=== PATIENT | female | born 1990 | race Caucasian/White ===

== ENCOUNTER 2017-07-13 03:10 | Emergency (ER) | payer MEDICAID ==
[2017-07-13] MEDS ORDERED: ONDANSETRON 4 MG/2 ML VIAL IVP ONE (03:15)
[2017-07-13] MEDS ORDERED: NS 1,000 ML IV ONE (03:15)
--- NOTE | 2017-07-13 03:18 | EDPHY ---
H & P Time Seen by Provider: 07/13/17 03:15 HPI/ROS: HPI CHIEF COMPLAINT: Nausea vomiting diarrhea HISTORY OF PRESENT ILLNESS: This patient is a 27-year-old female, she has a history of anxiety, PTSD, and is currently homeless staying at a local halfway she presents emergency room by EMS for nausea vomiting and diarrhea. She states this all started around 8:00 p.m. Last night. She had multiple episodes of nonbilious nonbloody vomiting. As well as watery diarrhea. Some abdominal cramping. She received Zofran 4 mg ODT in route as well as IV fluids and is feeling much better. Upon arrival to the emergency room she appears well nontoxic and in no acute distress she does complain that she feels dehydrated. She denies fever chest pain or shortness of breath. However does feel fatigued. Past Medical History: No significant medical history except for anxiety and PTSD Past Surgical History: , tonsillectomy, adenectomy, cholecystectomy Social History: Smokes tobacco, denies illicit drugs or alcohol. Staying at a local homeless halfway. Family History: Noncontributory ROS REVIEW OF SYSTEMS: A comprehensive 10 point review of systems is otherwise negative aside from elements mentioned in the history of present illness. Exam Constitutional appears well nontoxic no acute distress triage nursing summary reviewed, vital signs reviewed, awake/alert. Eyes normal conjunctivae and sclera, EOMI, PERRLA. HENT normal inspection, atraumatic, moist mucus membranes, no epistaxis, neck supple/ no meningismus, no raccoon eyes. Respiratory clear to auscultation bilaterally, normal breath sounds, no respiratory distress, no wheezing. Cardiovascular rate normal, regular rhythm, no murmur, no edema, distal pulses normal. Gastrointestinal no significant tenderness on exam, soft, non-tender, no rebound, no guarding, normal bowel sounds, no distension, no pulsatile mass. Genitourinary no CVA tenderness. Musculoskeletal no midline vertebral tenderness, full range of motion, no calf swelling, no tenderness of extremities, no meningismus, good pulses, neurovascularly intact. Skin pink, warm, & dry, no rash, skin atraumatic. Neurologic awake, alert and oriented x 3, AAOx3, moves all 4 extremities equally, motor intact, sensory intact, CN II-XII intact, normal cerebellar, normal vision, normal speech. Psychiatric normal mood/affect. Heme/Lymph/Immune no lymphadenopathy. Differential diagnosis includes but is not limited to and in no particular order : Dehydration, electrolyte disturbance, infection, enteritis, bowel obstruction , UTI, food-borne illness Medical Decision Making: Plan for this patient IV establishment IV fluid bolus 1 L normal saline, IV Zofran for nausea check basic blood work, urinalysis, electrolytes, re-evaluate. Re-evaluation: 0413: Patient re-examined at this time her abdomen is soft nontender. She was sleeping. On re-examination she states she feels much better after fluids and nausea medicine she has not had any vomiting here. I did review her blood work is no signs of significant abnormality she does have a mild leukocytosis. Most likely from vomiting and diarrhea. She has not had any diarrhea here. Her abdomen is soft. Otherwise electrolytes are appropriate. Clean urine. She feels better after fluids and nausea medicine. Will allowed to go home. Return precautions discussed with her she understands return emergency room if develops worsening abdominal pain fever vomiting. [place] diet over the next 24-48 hours. Return if worse she understands. Source: Patient, EMS - Medical/Surgical History Hx Asthma: Yes Hx Chronic Respiratory Disease: No Hx Diabetes: No Hx Cardiac Disease: No Hx Renal Disease: No Hx Cirrhosis: No Hx Alcoholism: No Hx HIV/AIDS: No Hx Splenectomy or Spleen Trauma: No Other PMH: scoliosis with chronic pain. ptsd. anxiety. insomnia. adhd. hypoglycemia. asthma Constitutional: Initial Vital Signs Temperature (C) 36.7 C 07/13/17 03:21 Heart Rate 93 07/13/17 03:21 Respiratory Rate 16 07/13/17 03:21 Blood Pressure 115/67 07/13/17 03:21 O2 Sat (%) 92 07/13/17 03:21 O2 Delivery Mode Room Air Allergies/Adverse Reactions: aspirin Allergy (Verified 04/07/13 00:46) baclofen Allergy (Verified 04/07/13 00:46) erythromycin base [Erythromycin Base] Allergy (Verified 04/07/13 00:46) tramadol Allergy (Verified 04/07/13 00:46) Home Medications: Medication Instructions Recorded Adderall 10 MG (RX) 04/07/13 Adderall Xr 10 mg Capsule 04/07/13 Advair 04/07/13 Imitrex 04/07/13 LUNESTA 04/07/13 Singulair 04/07/13 Soma 04/07/13 TYLENOL #3 04/07/13 Medical Decision Making - Data Points Laboratory Results: Laboratory Results 07/13/17 03:17 07/13/17 03:17 07/13/17 07/13/17 07/13/17 03:17 03:17 03:17 WBC 15.75 10^3/uL H 10^3/uL (3.80-9.50) RBC 5.02 10^6/uL 10^6/uL (4.18-5.33) Hgb 12.3 g/dL L g/dL (12.6-16.3) Hct 39.4 % % (38.0-47.0) MCV 78.5 fL L fL (81.5-99.8) MCH 24.5 pg L pg (27.9-34.1) MCHC 31.2 g/dL L g/dL (32.4-36.7) RDW 17.0 % H % (11.5-15.2) Plt Count 373 10^3/uL 10^3/uL (150-400) MPV 8.7 fL fL (8.7-11.7) Neut % (Auto) 86.0 % H % (39.3-74.2) Lymph % (Auto) 6.3 % L % (15.0-45.0) [place] % (Auto) 5.1 % % (4.5-13.0) Eos % (Auto) 1.8 % % (0.6-7.6) Baso % (Auto) 0.3 % % (0.3-1.7) Nucleat RBC Rel Count 0.0 % % (0.0-0.2) Absolute Neuts (auto) 13.53 10^3/uL H 10^3/uL (1.70-6.50) Absolute Lymphs (auto) 1.00 10^3/uL 10^3/uL (1.00-3.00) Absolute Monos (auto) 0.81 10^3/uL H 10^3/uL (0.30-0.80) Absolute Eos (auto) 0.29 10^3/uL 10^3/uL (0.03-0.40) Absolute Basos (auto) 0.04 10^3/uL 10^3/uL (0.02-0.10) Absolute Nucleated RBC 0.00 10^3/uL 10^3/uL (0-0.01) Immature Gran % 0.5 % % (0.0-1.1) Immature Gran # 0.08 10^3/uL 10^3/uL (0.00-0.10) Sodium 140 mEq/L mEq/L (135-145) Potassium 3.6 mEq/L mEq/L (3.5-5.2) Chloride 107 mEq/L mEq/L (97-110) Carbon Dioxide 24 mEq/l mEq/l (22-31) Anion Gap 9 mEq/L mEq/L (8-16) BUN 14 mg/dL mg/dL (7-23) Creatinine 0.6 mg/dL mg/dL (0.6-1.0) Estimated GFR > 60 Glucose 93 mg/dL mg/dL (70-100) Calcium 9.6 mg/dL mg/dL (8.5-10.4) Total Bilirubin 0.6 mg/dL mg/dL (0.1-1.4) Conjugated Bilirubin 0.3 mg/dL mg/dL (0.0-0.5) Unconjugated Bilirubin 0.3 mg/dL mg/dL (0.0-1.1) AST 22 IU/L IU/L (14-46) ALT 32 IU/L IU/L (9-52) Alkaline Phosphatase 56 IU/L IU/L (38-126) Total Protein 7.2 g/dL g/dL (6.3-8.2) Albumin 4.1 g/dL g/dL (3.5-5.0) Lipase 211 IU/L IU/L (23-300) Urine Color YELLOW Urine Appearance CLEAR Urine pH 6.0 (5.0-7.5) Ur Specific [place] 1.012 (1.002-1.030) Urine Protein NEGATIVE (NEGATIVE) Urine Ketones NEGATIVE (NEGATIVE) Urine Blood NEGATIVE (NEGATIVE) Urine Nitrate NEGATIVE (NEGATIVE) Urine Bilirubin NEGATIVE (NEGATIVE) Urine Urobilinogen NEGATIVE EU EU (0.2-1.0) Ur Leukocyte Esterase NEGATIVE (NEGATIVE) Urine Glucose NEGATIVE (NEGATIVE) Urine Opiates Screen NEGATIVE (NEGATIVE) Urine Barbiturates NEGATIVE (NEGATIVE) Ur Phencyclidine Scrn NEGATIVE (NEGATIVE) Ur Amphetamine Screen NEGATIVE (NEGATIVE) U Benzodiazepines Scrn NEGATIVE (NEGATIVE) Urine Cocaine Screen NEGATIVE (NEGATIVE) U Marijuana (THC) Screen NON-NEGATIVE H (NEGATIVE) Medications Given: Discontinued Medications Acetaminophen (Tylenol) 1,000 mg PO EDNOW ONE Stop: 07/13/17 03:35 Last Admin: 07/13/17 03:35 Dose: 1,000 mg Sodium Chloride (Ns) 1,000 mls @ 0 mls/hr IV EDNOW ONE; Wide Open PRN Reason: Protocol Stop: 07/13/17 03:16 Last Admin: 07/13/17 03:29 Dose: 1,000 mls Ondansetron HCl (Zofran) 4 mg IVP EDNOW ONE Stop: 07/13/17 03:16 Last Admin: 07/13/17 03:29 Dose: 4 mg Departure - Departure Disposition: Home, Routine, Self-Care Clinical Impression: Vomiting and diarrhea Condition: Good Instructions: Acute Nausea and Vomiting (ED) Additional Instructions: 1. [place] diet over the next 24-48 hours no spicy fatty greasy foods. 2. Return emergency room if you have worsening abdominal pain fever vomiting. Referrals: Patient,NotPresent [Unknown] - As per Instructions
[2017-07-13 03:34] LABS: PLATELET COUNT 373 10^3/uL (150-400)
[2017-07-13] MEDS ORDERED: ACETAMINOPHEN 500 MG TAB ONE (03:34)
[2017-07-13] MEDS ORDERED: ACETAMINOPHEN 500 MG TAB PO ONE (03:34)
[2017-07-13 04:32] VITALS: BP 102/52
== END 2017-07-13 04:31 | disposition home or self-care (01) ==
LOC: EDBD → EDUNIT#
DX: R19.7 Diarrhea, unspecified (principal); R11.10 Vomiting, unspecified; J45.909 Unspecified asthma, uncomplicated; E86.9 Volume depletion, unspecified
CPT/HCPCS: 80305; 96374; J2405

== ENCOUNTER 2017-09-04 03:31 | Emergency (ER) | payer MEDICAID ==
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
[2017-09-04] MEDS ORDERED: LORazepam 2 MG/ML INJ ONE (04:30)
[2017-09-04] MEDS ORDERED: LORazepam 2 MG/ML INJ IVP ONE (04:34)
[2017-09-04] MEDS ORDERED: NS 1,000 ML IV ONE (04:34)
[2017-09-04 04:41] LABS: PLATELET COUNT 366 10^3/uL (150-400)
[2017-09-04 10:20] VITALS: BP 118/71
--- NOTE | 2017-09-04 11:09 | ASMTCMCOM ---
CM Note CM Note Notes: Spoke w/patient and provided outpatient mental health resources, local homeless resources, and [facility] information. Pt gave permission for [facility] to reach out to her via her cell phone ([phone]...? pt isn't sure the last 4 are correct and can't turn on phone at this time) and/or her e-mail:[email or web address]. This CM e-mailed referral to Kari Alberts RN Health Partner with [facility]. Pt states she is open with [facility] and had a visit w/her counselor, Marisela (sp?), sometime last week; pt states she will follow up this week. Pt also open with [facility] and her PCP is Brionna Shipley; pt states she is seen at their [facility] at the [facility]. This CM to reach out to [facility] and [facility] staff to update re:pt's ED visit and request outpatient follow-up. Pt states she has been staying at the [facility] recently. Pt was also staying at the women's long[facility]term in [place] through . Pt requested a shirt because she didn't want to put hers back on; pt provided a long sleeve blouse. Pt also requested a cab ride back to the [facility] at [address]; Medicaid cab transport arranged (distance is under 25 miles so they are able to approve discharge transport; conf # [id number]). Pt waiting for cab in ED waiting area. Pt states she knows how to arrange Medicaid transport for herself to and from her outpatient appts. Pt appreciative for resources. CM available for further assistance if needed. Date Signed: 09/04/2017 11:08 AM Electronically Signed By:Adela Rudea RN
--- NOTE | 2017-09-04 11:14 | ASDISCHSUM ---
Discharge Information Plan Status:Homeless/Correction Medically Cleared to Leave: Discharge Date:09/04/2017 10:34 AM CM D/C Disposition:Streets (Homeless) ADT D/C Disposition:Home, Routine, Self-Care Projected Discharge Date:09/04/2017 10:34 AM Transportation at D/C:Medicaid Transportation Discharge Delay Reason: Follow-Up Date:09/04/2017 10:34 AM Discharge Slot: Final Diagnosis: Placement Information Patient Contact Information Contact Name:AMBER Relationship:Father Address: City: [facility] Phone: [facility]/Zip Code: Email: Financial Information Financial Class:Medicaid Primary Plan Desc: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 Pt gave permission for [facility] to reach out to her via her cell phone ([phone]...? pt isn't sure the last 4 are correct and can't turn on phone at this time) and/or her e-mail:[email or web address]. This CM e-mailed referral to Kari Alberts RN Health Partner with [facility]. Pt states she is open with [facility] and had a visit w/her counselor, Marisela (sp?), sometime last week; pt states she will follow up this week. Pt also open with [facility] and her PCP is Brionna Shipley; pt states she is seen at their [facility] at the [facility]. This CM to reach out to [facility] and [facility] staff to update re:pt's ED visit and request outpatient follow-up. Pt states she has been staying at the [facility] recently. Pt was also staying at the [facility] in [place] through [facility]. Pt requested a shirt because she didn't want to put hers back on; pt provided a long sleeve blouse. Pt also requested a cab ride back to the [facility] at [address]; Medicaid cab transport arranged (distance is under 25 miles so they are able to approve discharge transport; conf # [id number]). Pt waiting for cab in ED waiting area. Pt states she knows how to arrange Medicaid transport for herself to and from her outpatient appts. Pt appreciative for resources. CM available for further assistance if needed. Date Signed: 09/04/2017 11:08 AM Electronically Signed By:Adela Rueda RN Intervention Information Intervention Type:Clothing Date of Service:09/04/2017 11:11 AM Patient Type:Emergency Room Staff Member:ALEJANDRINA Rueda Sharon Hours:0.25 Discipline:Supervisor Assembly Stock Severity: Comment:shirt Intervention Type:Community Resources Date of Service:09/04/2017 11:11 AM Patient Type:Emergency Room Staff Member:ALEJANDRINA Rueda [place] Hours:0.5 Discipline:Supervisor Assembly Stock Severity: Comment:various Intervention Type:Transportation Date of Service:09/04/2017 11:11 AM Patient Type:Emergency Room Staff Member:ALEJANDRINA Rueda [place] Hours:0.25 Discipline:Supervisor Assembly Stock Severity: Comment:Medicaid cab conf # [id number]
--- NOTE | 2017-09-05 12:01 | ASMTCMCOM ---
CM Note CM Note Notes: Followed-up with ALEJANDRINA Sharma Compressed Gases Tester at the [facility] at [facility] ([phone]). Edith states pt is not seen at the [facility] but is followed by Brionna Shipley at the main [facility] location and her last visit was at the end of July 2017. Edith states she will reach out to [facility] and Brionna Shipley to see if patient could transfer to being seen at the [facility] and increase outpatient collaboration. Edith will also try to reach out to the patient and schedule a follow-up appt. Edith says the cell # they have for the patient is [phone]; this CM provided the cell # the pt provided yesterday ([phone]). CM available for further assistance if needed. Date Signed: 09/05/2017 12:00 PM Electronically Signed By:Adela Rueda RN
== END 2017-09-04 10:34 | disposition home or self-care (01) ==
DX: F41.9 Anxiety disorder, unspecified (principal); T43.8X5A Adverse effect of other psychotropic drugs, initial encounter; J45.909 Unspecified asthma, uncomplicated; F17.200 Nicotine dependence, unspecified, uncomplicated; E86.9 Volume depletion, unspecified
CPT/HCPCS: 80305; 96374; G0480; J2060